=== PATIENT | female | born 1960 | race Caucasian/White ===

== ENCOUNTER 2022-06-13 10:15 | Outpatient (CLI) | payer OTHER, SELFPAY ==
[2022-06-13 14:16] LABS: Cholesterol* 175 mg/dL (90-199)
[2022-06-13 14:17] LABS: HDL Cholesterol* 66 mg/dL (>=50); LDL Cholesterol Calculated 84 mg/dL (<100); Triglycerides* 127 mg/dL (40-149)
[2022-06-19 16:28] LABS: Vitamin D 25 Hydroxy* 41 ng/mL (30-80)
== END 2022-06-13 10:16 | disposition home or self-care (01) ==
PROVIDERS: PCP Internal Medicine; Visit Provider Internal Medicine
DX: E78.5 Hyperlipidemia, unspecified (principal); E03.9 Hypothyroidism, unspecified; M85.88 Other specified disorders of bone density and structure, other site
CPT/HCPCS: 80061; 82306; 82652; 84443

== ENCOUNTER 2022-06-19 14:28 | Outpatient (CLI) | payer OTHER, SELFPAY | END 2022-06-19 14:29 | disposition home or self-care (01) | LOC: NFLDREF 14:29 | PROVIDERS: PCP Internal Medicine; Visit Provider Internal Medicine | DX: M85.88 Other specified disorders of bone density and structure, other site (principal) ==

== ENCOUNTER 2022-12-07 14:47 | Outpatient (CLI) | payer OTHER, SELFPAY ==
--- NOTE | 2022-12-07 15:00 | CRLHL7_ITS ---
For Patients: As a result of the 21st Century Cures Act, medical imaging exams and procedure reports are released immediately into your electronic medical record. You may view this report before your referring provider. If you have questions, please contact your health care provider. INDICATION: Cough. Chest pressure. Right upper lobe mass on chest radiograph. History of breast cancer. TECHNIQUE: CT chest with 75 mL Isovue 370 IV contrast. COMPARISON: Chest radiograph dated 12/04/2022 FINDINGS: Lungs and pleura: Semi solid opacity in the posterior right upper lobe measuring up to 2.3 cm (series 3, image 34). There are additional scattered punctate pulmonary nodules, for example a 0.3 cm nodule in the right lower lobe (series 3, image 64), 0.2 cm subpleural nodule in the lingula (series 3, image 55), and a 0.3 cm nodule in the left lower lobe (series 3, image 63). Heart and vasculature: No cardiomegaly, no pericardial effusion. No central pulmonary embolus. Thyroid and lower neck: Thyroid gland is not visualized. Mediastinum/shanel: No lymphadenopathy. Chest wall: No axillary lymphadenopathy. Few small right internal mammary chain lymph nodes, nonspecific. Postsurgical changes of bilateral mastectomies. Upper abdomen: No acute abnormality. Bones: Multilevel degenerative changes of the spine. No suspicious/aggressive focal osseous lesion. IMPRESSION: 1. Semi-solid opacity in the posterior right upper lobe measuring up to 2.3 cm, is nonspecific and could reflect infectious/inflammatory etiology. However differential includes metastases given history of breast cancer, recommend follow-up CT chest in 3 months. 2. Additional scattered punctate pulmonary nodules measuring up to 0.3 cm. 3. Few small right internal mammary chain lymph nodes, nonspecific. Attention on follow-up is recommended. Please note that all CT scans at this facility use dose modulation, iterative reconstruction, and/or weight-based dosing when appropriate to reduce radiation dose to as low as reasonably achievable. Dictated by Pearl Salguero MD @ 12/07/2022 5:35:31 PM (Electronically Signed)
[2022-12-07 15:16] LABS: Creatinine* 0.8 mg/dL (0.5-1.5); Estimated Glomerular Filt Rate 83 ml/min
== END 2022-12-07 14:48 | disposition home or self-care (01) ==
PROVIDERS: PCP Internal Medicine; Visit Provider Internal Medicine
DX: R05.9 Cough, unspecified (principal); R91.8 Other nonspecific abnormal finding of lung field
CPT/HCPCS: 36415; 71260; 82565; Q9967

== ENCOUNTER 2023-05-22 11:02 | Outpatient (REF) | payer OTHER, SELFPAY ==
--- OUTSIDE RECORDS SUMMARY | 2023-05-22 11:09 | XMS_ITS | Continuity of Care Document ---
Author Name Unknown Organization [facility] Address [address] [place] [address] Phone Care Team Providers Care Professor Of Anthropology Name Role Phone John CAMPUZANO, PhD, Stewart Unavailable Unavai lable Allergies, Adverse Reactions, Alerts Substance Reaction Status Criticality amoxicillin Vomiting/Passout Active No Informat ion Medications Medication Instructions Dosage Effective Dates (start - stop) Status Comments SYNTHROID (unknown strength) Not Available - Active NEXIUM (unknown strength) Not Available - Active WELCHOL (unknown strength) Not Available - Active METOPROLOL SUCCINATE (unknown strength) Not Available - Active MYRBETRIQ (unknown strength) Not Available - Active Procedures Procedure Date Office/Outpatient Visit,Earl Maldonado 2018 Advance Directives Directive Yes / No Effective Date File Name No Information Encounters Encounter Description Practice Location Reason(s) For Visit Diagnoses Date Provider Providers Copied on Encounter [facility], [address], [place], [id number], [place] tel:[phone] [facility] No Information 9 John William. [facility], [address], [place], [address], [place]. tel:[phone] Office/Outpat ient Visit,[facility], [address], [place], [id number], [place] tel:[phone] [facility] [place] Pain in thoracic spine 9 Judson Henriquez. [facility], [address], [place], [place], [id number] , . tel:[phone] Referring Provider: Stewart Lopez, [facility] [address], [place], [address]. tel:[phone] Family History Family Member Type Diagnosis Age At Onset No Information Payers Payer name Insurance type Covered libertarian ID Authorkarloa tibrook(s) [employer] CI [id number] Social History Type Description Quantity Date Captured Comments Sex Female Smoking Status No Information Chief Complaint And Reason For Visit No Information Reason For Referral Reason For Referral No Information History Of Present Illness Encounter Date Complaint History Of Prese nt Illness No Information Functional Status Date Functional Assessmen t No Information Instructions Date Instruction Additional Infor mation No Information Assessments Type Assessment Date No Information Patient Care Teams Name Effective Dates (start - stop) Status Members No Information
[2023-05-22 11:24] LABS: Chloride* 100 mmol/L (96-114)
[2023-05-22 11:25] LABS: Potassium* 4.3 mmol/L (3.6-5.1); Sodium* 141 mmol/L (135-149)
[2023-05-22 11:27] LABS: Alkaline Phosphatase* 61 U/L (40-150); Anion Gap 8 mEq/L (7-15); Carbon Dioxide* 33 mmol/L (20-32); Creatinine* 0.8 mg/dL (0.5-1.5); Estimated Glomerular Filt Rate 83 ml/min
[2023-05-22 11:28] LABS: Blood Urea Nitrogen* 15 mg/dL (7-30); Calcium* 9.2 mg/dL (8.4-10.6); Glucose* 93 mg/dL (60-115)
== END 2023-05-22 11:03 | disposition home or self-care (01) ==
LOC: NPINS 11:02
PROVIDERS: PCP Internal Medicine; Visit Provider Family Medicine Sports Medicine
DX: M81.0 Age-related osteoporosis without current pathological fracture (principal)
CPT/HCPCS: 80048; 80061; 82306; 82310; 83970; 84075; 84443

== ENCOUNTER 2023-06-13 10:16 | Outpatient (CLI) | payer OTHER, SELFPAY ==
--- OUTSIDE RECORDS SUMMARY | 2023-06-13 10:18 | XMS_ITS | Continuity of Care Document ---
Author Name Unknown Organization [facility] Address [address] [place] [address] Phone Care Team Providers Care Magazine Designer Name Role Phone John CAMPUZANO, PhD, Stewart [...] C, [address], [place], [id number], [place] tel:[phone] [facility] No Information 9 John William. [facility], [address], [place], [address], [place]. tel:[phone] Office/Outpat ient Visit,[facility], [address], [place], [id number], [place] tel:[phone] [facility] [place] Pain in thoracic spine 9 Judson Henriquez. [facility], [address], [place], [place], [id number] , . tel:[phone] Referring Provider: Stewart Lopez, [facility] [address], [place], [address]. tel:[phone] Family History Family Member Type Diagnosis Age At Onset No Information Payers Payer name Insurance type Covered constitution party ID Authorkarloa tibrook(s) [employer] CI [id number] Social History Type Description Quantity Date Captured [...]
--- OUTSIDE RECORDS SUMMARY | 2023-06-13 10:19 | XMS_ITS | Continuity of Care Document ---
Author Name Unknown Organization [facility] Address [address] [place] [address] Care Team Providers Care Business Education Instructor Name Role Phone [facility] Unavailable Unav ailable Procedures Procedure Date RF Cerv/Thor Single Level BILATERAL RF Cerv/Thor 2nd Level RIGHT RF Cerv/Thor 2nd Level LEFT RF Cerv/Thor Single Level BILATERAL RF Cerv/Thor Single Level BILATERAL RF Cerv/Thor 2nd Level RIGHT RF Cerv/Thor 2nd Level LEFT RF Cerv/Thor Single Level BILATERAL RF Cerv/Thor Single Level BILATERAL RF Cerv/Thor 2nd Level LEFT RF Cerv/Thor 2nd Level RIGHT RF Cerv/Thor Single Level BILATERAL Facet Jt Inj Cervical/Thoracic LEFT RF Cerv/Thor Single Level BILATERAL RF Cerv/Thor 2nd Level RIGHT RF Cerv/Thor 2nd Level LEFT RF Cerv/Thor Single Level BILATERAL Facet Jt Inj Cervical/Thoracic LEFT Facet Jt Inj Cervical/Thoracic RIGHT Feb Facet Jt Inj Cerv/Thor 2nd Level LEFT Se p Facet Jt Inj Cerv/Thor 2nd Level RIGHT S Facet Jt Inj Cerv/Thor 3rd Level LEFT Se p Facet Jt Inj Cerv/Thor 3rd Level RIGHT S RF Cerv/Thor Single Level LEFT 21 RF Cerv/Thor 2nd Level LEFT Facet Jt Inj Cervical/Thoracic LEFT Facet Jt Inj Cerv/Thor 2nd Level LEFT Ja Facet Jt Inj Cervical/Thoracic LEFT Facet Jt Inj Cerv/Thor 2nd Level LEFT De RF Cerv/Thor Single Level RIGHT RF Cerv/Thor 2nd Level RIGHT Facet Jt Inj Cervical/Thoracic RIGHT Apr Facet Jt Inj Cerv/Thor 2nd Level RIGHT N Facet Jt Inj Cervical/Thoracic RIGHT Mar Facet Jt Inj Cerv/Thor 2nd Level RIGHT O INTERLAMINAR CRV OR THRC Advance Directives Directive Yes / No Effective Date File Name No Information Encounters Encounter Description Practice Location Reason(s) For Visit Diagnoses Date Provider Providers Copied on Encounter [facility], [address] [place] [address], [id number], [facility] No Information [facility]. [address] [place] [address] [place], [id number], [place]. tel:[phone] Referring Provider: Sabrina Moran, [address] [place] [address], [id number]. tel:[phone] [facility], [address] [place] [address], [id number], [facility] No Information [facility]. [address] [place] [address] [place], [id number], [place]. tel:[phone] Referring Provider: Charles Lucas, [address] [place] [address], [address]. tel:[phone] [facility], [address] [place] [address], [id number], [facility] No Information [facility]. [address] [place] [address] [place], [place], [id number], [place]. tel:[phone] Referring Provider: Sabrina Moran, [address] [place] [address], [address]. tel:[phone] [place] [address], [address] [place] [address] [place], [id number], [facility] [place] No Information [facility] [place]. [address] [place] [address] Jb, Ethel [place], [id number], [place]. tel:[phone] Referring Provider: Sabrina Moran, [address] [place] [address], [address]. tel:[phone] [place] [address] [facility] [place], [address] [place] [address], [id number], [facility] [place] No Information [facility] [place]. [address] [place] [address] E[place], [id number], [place]. tel:[phone] Referring Provider: Sabrina Moran, [address] [place] [address], [address]. tel:[phone] [place] [address], [address] [place] [address], [id number], [facility] [place] No Information [facility]. [address] [place] [address] Jb, E[place], [id number], [place]. tel:[phone] Referring Provider: Sabrina Moran, [address] [place] [address], [address]. tel:[phone] [place] [address], [address] [place] [address], [id number], [facility] [place] No Information [facility]. [address] [place] [address] Jb, Ethel [place], [place], [id number], [place]. tel:[phone] Referring Provider: Sabrina Moran, [address] [place] [address], [id number]. tel:[phone] [place] [address] [facility] [place], [address] [place] [address] [place], [id number], [facility] [place] No Information [facility] [place]. [address] [place] [address] Jb, [place], [id number], [place]. tel:[phone] Referring Provider: Sabrina Moran, [address] [place] [address], [id number]. tel:[phone] [place] [address], [address] [place] [address], [id number], [facility] [place] No Information [facility] [place]. [address] [place] [address] Jb, [place], [id number], [place]. tel:[phone] Referring Provider: Sabrina Moran, [address] [place] [address], [address]. [phone] [place] [address] [facility] [place], [address] [place] [address], [id number], [facility] [place] No Information [facility]. [address] [place] [address] Jb, [facility] [place], [id number], [place]. tel:[phone] Referring Provider: Sabrina Moran, [address] [place] [address], [address]. tel:[phone] [place] [address], [address] [place] [address], [id number], [facility] [place] No Information [facility]. [address] [place] [address] Jb, [facility] [place], [id number], [place]. tel:[phone] Referring Provider: Sabrina Moran, [address] [place] [address], [address]. tel:[phone] [place] [address], [address] [place] [address], [id number], [facility] [place] No Information [facility]. [address] [place] [address] Jb, [facility] [place], [id number], [place]. tel:[phone] Referring Provider: Sabrina Moran, [address] [place] [address], [address]. tel:[phone] [place] [address] [facility] [place], [address] [place] [address] [place], [id number], [facility] [place] No Information [facility] [place]. [address] [place] [address] Jb, [facility], [id number], [place]. tel:[phone] Referring Provider: Sabrina Moran, [address] [place], [address]. tel:[phone] Family History Family Member Type Diagnosis Age At Onset No Information Payers Payer name Insurance type Covered alliance party ID Authoriza tibrook(s) [employer] CI [id number] Social History Type Description Quantity Date Captured [...]
--- OUTSIDE RECORDS SUMMARY | 2023-06-13 10:19 | XMS_ITS | Continuity of Care Document ---
Author Name Unknown Organization [facility] Address [address] [place] [address] Care Team Providers Care Candy Forming Machine Operator Name Role Phone Rinku Gold CRNA Unavailable Unavailable Procedures Procedure Date Percutaneous Image guided destruction pr ocedures B Percutaneous Image guided destruction pr ocedures B Percutaneous Image guided destruction pr ocedures B ANESTH PERC IMG TX SP PROC ANESTH PERC IMG TX SP PROC ANESTH PERC IMG TX SP PROC Advance Directives Directive Yes / No Effective Date File Name No Information Encounters Encounter Description Practice Location Reason(s) For Visit Diagnoses Date Provider Providers Copied on Encounter [facility], [address] [place], [place], [id number], [facility] [place] No Information Asif Dobbs. [address] [place], [place], [id number], . tel:[phone] Referring Provider: Sabrina Moran, [address] [place], [address] . tel:[phone] [facility], [address] [place], [place], [id number], [facility] [place] No Information Asif Dobbs. [address] [place], [place], [id number], . tel:[phone] Referring Provider: Charles Lucas, [address] [place], [address] . tel:[phone] [facility], [address], [place], [place], [id number], [facility] [place] No Information Amol Martins. [address], [facility], [place], [place], [id number], . tel:[phone] Referring Provider: Sabrina Moran, [address] [place], [address] . tel:[phone] [facility], [address] [place], [place], [id number], [facility] [place] No Information Aleja Zelaya. [address], [place], [place], [id number], . tel:[phone] Referring Provider: Sabrina Moran, [facility] [place], [address] . tel:[phone] [facility], [address] [place], [place], [id number], [facility] [place] No Information Lillian Encarnacion. [address], [facility], [place], [place], [id number], . tel:[phone] Referring Provider: Salvador Vergara, [address] [facility] [address], [place], [address]. tel:[phone] [facility], [address] [place], [place], [id number], [facility] No Information Adeline Topete. [address], [place], [place], [id number], . tel:[phone] Referring Provider: Sabrina Moran, [facility] [place], [address] . tel:[phone] Family History Family Member Type Diagnosis Age At Onset No Information Payers Payer name Insurance type Covered alliance party ID Authoriza tibrook(s) [employer] CI [id number] Social History Type Description Quantity Date Captured [...]
--- OUTSIDE RECORDS SUMMARY | 2023-06-13 10:19 | XMS_ITS | Continuity of Care Document ---
Author Name Unknown Organization [facility] Address [address] [place] [address] Phone Care Team Providers Care Fish Liver Sorter Name Role Phone Sabrina Moran DO Unavailable Unavailable Allergies, Adverse Reactions, Alerts Substance Reaction Status Criticality adhesive Blister Active No Information amoxicillin Nausea and vomitingpassing out Active No Information Medications Medication Instructions Dosage Effective Dates (start - stop) Status Comments Prolia 60 mg/mL subcutaneous syringe inject 1 milliliter by subcutaneous route every 6 months in the upper arm, upper thigh or abdomen 60 MG - Active Vagifem 10 mcg vaginal tablet insert 1 tablet by vaginal route every day for 14 days then 1 tablet (10 mcg) 2 times per week for duration of use as needed 10 MCG - Active Nexium 40 mg capsule,delayed release take 1 capsule by oral route every day 40 MG - Active Synthroid 125 mcg tablet take 1 tablet by oral route every day 125 MCG - Active rosuvastatin 10 mg tablet take 2 tablet by oral route every day 20 MG - Active Myrbetriq 25 mg tablet,extended release take 1 tablet by oral route every day swallowing whole with water. Do not crush, chew and/or divide. 25 MG - Active metoprolol tartrate 25 mg tablet take 1 tablet by oral route 2 times every day 25 MG - Active Procedures Procedure Date OFFICE/OUTPATIENT VISIT, EST RF Cerv/Thor Single Level BILATERAL RF Cerv/Thor 2nd Level RIGHT RF Cerv/Thor 2nd Level LEFT OFFICE/OUTPATIENT VISIT, EST RF Cerv/Thor Single Level BILATERAL RF Cerv/Thor 2nd Level RIGHT RF Cerv/Thor 2nd Level LEFT PT EVAL MOD COMPLEX 30 MIN SELF CARE MNGMENT TRAINING INJ TRIGGER POINT, 1/2 MUSCL Kenalog Triamcinolone acetonide inj OFFICE/OUTPATIENT VISIT, EST RF Cerv/Thor Single Level BILATERAL RF Cerv/Thor 2nd Level LEFT RF Cerv/Thor 2nd Level RIGHT OFFICE/OUTPATIENT VISIT, EST OFFICE/OUTPATIENT VISIT, EST Facet Jt Inj Or MBB Cervical/Thoracic LE FT OFFICE/OUTPATIENT VISIT, EST RF Cerv/Thor Single Level BILATERAL RF Cerv/Thor 2nd Level RIGHT RF Cerv/Thor 2nd Level LEFT Facet Jt Inj Or MBB Cervical/Thoracic BI LATERAL Facet Jt Inj Or MBB Cerv/Thor 2nd Level BILATERAL Facet Jt Inj Or MBB Cerv/Thor 3rd Level BILATERAL OFFICE/OUTPATIENT VISIT, EST RF Cerv/Thor Single Level LEFT 21 RF Cerv/Thor 2nd Level LEFT Facet Jt Inj Or MBB Cervical/Thoracic LE FT Facet Jt Inj Or MBB Cerv/Thor 2nd Level LEFT Facet Jt Inj Or MBB Cervical/Thoracic LE FT Facet Jt Inj Or MBB Cerv/Thor 2nd Level LEFT RF Cerv/Thor Single Level RIGHT 020 RF Cerv/Thor 2nd Level RIGHT Foll-up eval q3mo opiod tx OFFICE VISIT, EST TELEMEDICINE 20 Facet Jt Inj Or MBB Cervical/Thoracic RI GHT Facet Jt Inj Or MBB Cerv/Thor 2nd Level RIGHT Facet Jt Inj Or MBB Cervical/Thoracic RI GHT Facet Jt Inj Or MBB Cerv/Thor 2nd Level RIGHT PT EVAL MOD COMPLEX 30 MIN SELF CARE MNGMENT TRAINING INTERLAMINAR CRV OR THRC OFFICE/OUTPATIENT VISIT, EST OFFICE/OUTPATIENT VISIT, NEW Advance Directives Directive Yes / No Effective Date File Name No Information Encounters Encounter Description Practice Location Reason(s) For Visit Diagnoses Date Provider Providers Copied on Encounter [facility], [address] [place] [address] [place], [id number] , tel: [phone] [facility] No Information 3 Moran Sabrina. [address] [place] [address] Balaji Muhammadlibby colon [place], [id number] , [place]. tel: [phone] OFFICE/OUTPAT IENT VISIT, [facility], [address] [place] [address] [place], [id number] , tel: [phone] [facility] Back Pain (chief complaint) Chronic pain syndromeSpondylosis w/o myelopathy or radiculopathy, thoracic regionMyalgia, other siteOther chest painOther assisted (current) drug therapyOther spondylosis, cervical region 3 Moran Sabrina. [address] [place] [address] [place], [id number] , [place]. tel: [phone] Referring Provider: Charles Lawton, [address] [place] [address] [place], [address] . tel:[phone] [facility], [address] [place] [address] [place], [id number] , [place] tel: [phone] [facility] Spondylosis without myelopathy or radiculopathy, thoracic region 3 Moran Sabrina. [address] [place] [address] Rosa Maria Muhammad [place], [id number] , [place]. tel: [phone] Referring Provider: Charles Lawton, [address] [place] [address] [place], [address] . tel:[phone] OFFICE/OUTPAT IENT VISIT, [facility], [address] [place] [address] Humera Muhammad [place], [id number] , [place] tel:[phone] [facility] [place] Back Pain (chief complaint) Chronic pain syndromeSpondylosis w/o myelopathy or radiculopathy, thoracic regionMyalgia, other siteOther chest painOther intermediate card tender (current) drug therapy 3 Luisa Bennett. [address] [place] [address] Rosa Maria Muhammad [place], [id number] , [place]. tel: [phone] Referring Provider: Charles Lawton, [address] [place] [address] [place], [address] . tel:[phone] [facility], [address] [place] [address] Humera Muhammad [place], [id number] , [place] tel:[phone] [facility] [place] Spondylosis without myelopathy or radiculopathy, thoracic region 2 Lance Soto. [address] [place] [address] Humera Muhammad [place], [id number] , [place]. tel:[phone] Referring Provider: Charles Lawton, [address] [place] [address] [place], [address] . tel:[phone] [facility], [address] [place], [place] [address]Humera [place], [id number] , [place] tel:[phone] [facility] [place] lumbago (chief complaint) Other chest painSpondylosis w/o myelopathy or radiculopathy, thoracic region 2 Jennifer Acuna. [address] [place] [address] Rosa Maria Muhammad [place], [id number] , [place]. tel:[phone] Referring Provider: Charles Lawton, [address] [place] [address] [place], [address] . tel:[phone] OFFICE/OUTPAT IENT VISIT, [facility], [address] [place], [place] [address]Humera [place]endon [place], [id number] , [place] tel:[phone] [facility] [place] Back Pain (chief complaint) Chronic pain syndromeSpondylosis w/o myelopathy or radiculopathy, thoracic regionOther chest painOther assisted (current) drug therapyMyalgia, other site 2 Moran Sabrina. [facility] [place], [id number] , [place]. tel:[phone] Referring Provider: Charles Lawton, [address] [place], [place] [address]Ethel [place], [address] . tel:[phone] [facility], [address] [place] [address] Humera Muhammad [place], [id number] , [place] tel:[phone] [facility] Spondylosis without myelopathy or radiculopathy, thoracic region 2 Moran Sabrina. [facility] [place], [id number] , [place]. tel:[phone] Referring Provider: Charles Lawton, [address] [place], [place] [address]ms [place], [address] . tel:[phone] [facility], [address] [place], [place] [address]Humera [place], [id number] , [place] tel:[phone] [facility] thoracic spine (chief complaint)d orsalgia (chief complaint) Spondylosis w/o myelopathy or radiculopathy, thoracic region 2 Jennifer Acuna. [facility] [place], [id number] , [place]. tel:[phone] Referring Provider: Charles Lawton, [address] [place] [address] [place], [address] . tel:[phone] OFFICE/OUTPAT IENT VISIT, EST [facility], [facility] [place], [id number] , [place] tel:[phone] [facility] Back Pain (chief complaint) Chronic pain syndromeSpondylosis w/o myelopathy or radiculopathy, thoracic regionOther chest painOther intermediate card tender (current) drug therapy Apr- 2 Moran Sabrina. [facility] [place], [id number] , [place]. tel:[phone] Referring Provider: Charles Lawton, [address] [place], [address] . tel:[phone] [facility], [address] [place], [place] [address]Humera [place]end[place], [id number] , [place] tel: [phone] [facility] Spondylosis w/o myelopathy or radiculopathy, thoracic region Sep-2 2 Moranmigdalia Bennett. [facility] [place], [id number] , [place]. tel: [phone] OFFICE/OUTPAT IENT VISIT, [facility], [facility] Humera Ying [place], [id number] , [place] tel: [phone] [facility] [place] Back Pain (chief complaint) Chronic pain syndromeSpondylosis w/o myelopathy or radiculopathy, thoracic regionOther chest pain Aug-3 2 Will Charles. [address] [place], [place] [address]Rosa Maria [place], [id number] , [place]. tel: [phone] Referring Provider: Charles Lawton, [address] [place] [address] [place], [address] . tel:[phone] [facility], [facility] Humera Ying [place], [id number] , [place] tel: [phone] [facility] Spondylosis w/o myelopathy or radiculopathy, thoracic region 1 Luisa Bennett. [facility] [place], [id number] , [place]. tel: [phone] Referring Provider: Charles Lawton, [address] [place], [place] [address]Ethel [place], [address] . tel:[phone] OFFICE/OUTPAT IENT VISIT, [facility], Hum[place] Arriaga [place], [id number] , [place] tel: [phone] [facility] [place] Back Pain (chief complaint) Chronic pain syndromeOther chest painSpondylosis w/o myelopathy or radiculopathy, thoracic regionOther assisted (current) drug therapy Nov-1 0-202 1 Moran Sabrina. [address] Rosa [place], [id number] , [place]. tel: [phone] Referring Provider: Charles Lawton, [facility] [place], [address] . tel:[phone] [facility], [address] [place], [place] [address]Humera [place]end[place], [id number] , [place] tel: [phone] [facility] Spondylosis w/o myelopathy or radiculopathy, thoracic region Sep-3 0-202 1 Moran Sabrina. [facility] Rosa Maria Ying [place], [address] , [place]. tel: [phone] Referring Provider: Charles Lawton, [address] [place], [place] [address]Ethel [place], [address] . tel:[phone] [facility], [address] [place] [address] Humera Muhammad [place], [id number] , [place] tel: [phone] [facility] Spondylosis w/o myelopathy or radiculopathy, thoracic region Sep-0 8- 1 Moran Sabrina. [address] [place], [place] [address]Rosa Maria [place]end[place], [id number] , [place]. tel: [phone] [facility], [address] [place], [place] [address]Humera [place]end[place], [id number] , [place] tel: [phone] [facility] Spondylosis w/o myelopathy or radiculopathy, thoracic region Sep-0 2-202 1 Moran Sabrina. [address] [place], [place] [address]Rosa Maria [place], [id number] , [place]. tel: [phone] Referring Provider: Charles Lawton, [address] [place] [address] Ethel [place], [address] . tel:[phone] OFFICE/OUTPAT IENT VISIT, EST [facility], [facility] Humera Ying [place], [id number] , [place] tel: [phone] [facility] Back Pain (chief complaint) Chronic pain syndromeOther chest painSpondylosis w/o myelopathy or radiculopathy, thoracic region Aug- 1 Moran Sabrina. [address] Rosa [place] Ying [place], [id number] , [place]. tel: [phone] Referring Provider: Charles Lawton, Ethel [place], [address] . tel:[phone] [facility], [address] [place], [address] , [place] tel: [phone] [facility] [place] Spondylosis without myelopathy or radiculopathy, thoracic region 1 Moran Sabrina. [address] Rosa Maria Ying [place], [id number] , [place]. tel: [phone] Referring Provider: Charles Lawton, Ethel Arriaga [place], [address] . tel:[phone] [facility], [facility] Humera Ying [place], [id number] , [place] tel: [phone] [facility] [place] Spondylosis without myelopathy or radiculopathy, thoracic region 1 Moran Sabrina. [address] Rosa [place] Ying [place], [id number] , [place]. tel: [phone] [facility], [address] [place], [address] , [place] tel: [phone] [facility] Spondylosis without myelopathy or radiculopathy, thoracic region 1 Moran Sabrina. [address] Rosa Maria Ying [place], [address] , [place]. tel: [phone] Referring Provider: Charles Lawton, Ethel Wise [place], [address] . tel:[phone] [facility], 72[place], [id number] , [place] tel: [phone] [facility] [place] Spondylosis without myelopathy or radiculopathy, thoracic region 0 Moran Sabrina. 72Rosa [place], [id number] , [place]. tel: [phone] [facility], [address] Hum[place], [id number] , [place] tel: [phone] [facility] Spondylosis without myelopathy or radiculopathy, thoracic region 0 Moran Sabrina. [address] Rosa Maria Ying [place], [address] , [place]. tel: [phone] Referring Provider: Charles Lawton, [address] [place], [place] [address]ms Muhammad Balajicat antonioRADHA, [address] . tel:[phone] [facility], [facility] Humera Ying [place], [id number] , [place] tel: [phone] [facility] [place] Spondylosis without myelopathy or radiculopathy, thoracic region 0 Will Charles. [address] [place], [place] [address]Rosa Maria Rendon [place], [id number] , [place]. tel: [phone] [facility], [facility] Hum[place] Ying [place], [address] , [place] tel: [phone] [facility] Spondylosis w/o myelopathy or radiculopathy, thoracic region 0 Moran Sabrina. [address] Rosa Maria Ying [place], [id number] , [place]. tel: [phone] Referring Provider: Charles Lawton, [facility], [address] . tel:[phone] OFFICE VISIT, EST TELEMEDICINE [facility], [address] Hum[place], [id number] , [place] tel: [phone] [facility] Back Pain (chief complaint) Chronic pain syndromeOther chest painSpondylosis w/o myelopathy or radiculopathy, thoracic region 0 Jennifer Didi. [address] Rosa Maria Ying [place], [address] , [place]. tel: [phone] Referring Provider: Charles Lawton, [address] [place], [place] [address]ms [place], [address] . tel:[phone] [facility], [address], [address] , [place] tel: [phone] [facility] [place] Spondylosis without myelopathy or radiculopathy, thoracic region Apr-0 0 Moran Sabrina. [address] Rosa [place] Ying [place], [address] , [place]. tel: [phone] [facility], [address] [place] [address] Humera Muhammad [place], [id number] , [place] tel: [phone] [facility] Spondylosis without myelopathy or radiculopathy, thoracic region Apr-0 0 Moran Sabrina. [address] Rosa Maria Ying [place], [id number] , [place]. tel: [phone] Referring Provider: Charles Lawton, [address] [place], [place] [address]ms [place], [address] . tel:[phone] [facility], [address] [place], [place] [address]Humera [place]end[place], [address] , [place] tel: [phone] [facility] [place] Spondylosis without myelopathy or radiculopathy, thoracic region Mar- 0 Moran Sabrina. [facility] Rosa Maria Ying [place], [address] , [place]. tel: [phone] [facility], [facility] [place], [id number] , [place] tel: [phone] [facility] Spondylosis without myelopathy or radiculopathy, thoracic region Mar-2 0- 0 Moran Sabrina. [address] [place], [place] [address]Rosa Maria Rendon [place], [id number] , [place]. tel: [phone] Referring Provider: Charles Lawton, [address] [place] [address] [place], [address] . tel:[phone] [facility], [facility] Humera Ying [place], [address] , [place] tel: [phone] [facility] [place] widespread pain (chief complaint) Spondylosis w/o myelopathy or radiculopathy, thoracic region Oct-06 27-202 0 Jennifer Acuna. [address] Ne[place], [id number] , [place]. tel: [phone] Referring Provider: Charles Lawton, [facility] [place], [address] . tel:[phone] [facility], [address] [place] [address] Humera Muhammad [place], [address] , [place] tel: [phone] [facility] Spondylosis w/o myelopathy or radiculopathy, thoracic region Oct- 3-202 0 Moran Sabrina. [address] [place] [address] Rosa Maria Muhammad [place], [id number] , [place]. tel: [phone] [facility], [address] [place], [place] [address]Humera [place]end[place], [address] , [place] tel: [phone] [facility] Spondylosis w/o myelopathy or radiculopathy, thoracic region Sep-2 0 Moran Sabrina. [address] [place], [place] [address]Rosa Maria Rendon [place], [address] , [place]. tel: [phone] Referring Provider: Charles Lawton, [address] [place] [address] Ethel Muhammad [place], [address] . tel:[phone] OFFICE/OUTPAT IENT VISIT, [facility], [facility] Humera Ying [place], [address] , [place] tel: [phone] [facility] Back Pain (chief complaint) Chronic pain syndromeOther chest painSpondylosis w/o myelopathy or radiculopathy, thoracic region Sep-0 202 0 Moran Sabrina. [facility] [place], [address] , [place]. tel: [phone] Referring Provider: Charles Lawton, [address] [place], [place] [address]Ethel [place]endon [place], [address] . tel:[phone] OFFICE/OUTPAT IENT VISIT, [facility], [address] [place], [place] [address]Humera [place]endon [place], [id number] , [place] tel: [phone] [facility] [place] Back Pain (chief complaint) Chronic pain syndromeOther chest pain 0 Luisa Bennett. [address] Rosa Maria Ying [place], [address] , [place]. tel: [phone] Referring Provider: Charles Lawton, [address] [place], [address] . tel:[phone] Family History Family Member Type Diagnosis Age At Onset No Information Payers Payer name Insurance type Covered democrat ID Authoriza tibrook(s) [employer] CI [id number] Social History Type Description Quantity Date Captured Comments Sex Female Smoking Status No Information Chief Complaint And Reason For Visit No Information Reason For Referral Reason For Referral No Information Plan Of Treatment Date Type Action Status Goal Hepatitis C screening. Due o n due Goal Height. Due on d ue Goal CT-Colonography. Due on due Goal Zoster vaccine (). Due on due Goal PHQ-9. Due on du e Goal Lipid panel. Due on 023 due Goal FIT-DNA. Due on due Goal Medication Reconciliation. D ue on due Goal Tobacco Use. Due on 023 due Goal Review Allergy List. Due on due Goal FIT. Due on due Goal Update Social History. Due o n due Goal Unhealthy drug use screening . Due on due Goal Weight. Due on d ue Goal HPV. Due on due Goal Unhealthy drug use screening . Due on due Goal HPV. Due on due Goal Medication Reconciliation. D ue on due Goal Review Allergy List. Due on due Goal FIT. Due on due Goal CT-Colonography. Due on due Goal Update Social History. Due o n due Goal Lipid panel. Due on 023 due Goal FIT-DNA. Due on due Goal Weight. Due on d ue Goal Tobacco Use. Due on 023 due Goal PHQ-9. Due on du e Goal Hepatitis C screening. Due o n due Goal Height. Due on d ue Goal Zoster vaccine (1st). Due on due Goal Unhealthy drug use screening . Due on due Goal Medication Reconciliation. D ue on due Goal PHQ-9. Due on du e Goal Weight. Due on d ue Goal HPV. Due on due Goal FIT. Due on due Goal Height. Due on d ue Goal FIT-DNA. Due on due Goal CT-Colonography. Due on due Goal Tobacco Use. Due on 022 due Goal Hepatitis C screening. Due o n due Goal Lipid panel. Due on due Goal Update Social History. Due o n due Goal Review Allergy List. Due on due Goal Zoster vaccine (1st). Due on due Goal Height. Due on d ue Goal PHQ-9. Due on du e Goal HPV. Due on due Goal Unhealthy drug use screening . Due on due Goal Medication Reconciliation. D ue on due Goal FIT-DNA. Due on due Goal Weight. Due on d ue Goal FIT. Due on due Goal Zoster vaccine (1st). Due on due Goal CT-Colonography. Due on due Goal Update Social History. Due o n due Goal Tobacco Use. Due on due Goal Hepatitis C screening. Due o n due Goal Lipid panel. Due on due Goal Review Allergy List. Due on due Goal CT-Colonography. Due on due Goal Weight. Due on d ue Goal FIT-DNA. Due on due Goal Update Social History. Due o n due Goal Review Allergy List. Due on due Goal HPV. Due on due Goal Tobacco Use. Due on due Goal Lipid panel. Due on due Goal FIT. Due on due Goal Hepatitis C screening. Due o n due Goal Medication Reconciliation. D ue on due Goal Unhealthy drug use screening . Due on due Goal PHQ-9. Due on du e Goal Height. Due on d ue Goal Zoster vaccine (). Due on due Goal Review Allergy List. Due on due Goal Unhealthy drug use screening . Due on due Goal Hepatitis C screening. Due o n due Goal PHQ-9. Due on du e Goal Zoster vaccine (). Due on due Goal Medication Reconciliation. D ue on due Goal Update Social History. Due o n due Goal FIT. Due on due Goal Weight. Due on d ue Goal Tobacco Use. Due on due Goal Lipid panel. Due on due Goal FIT-DNA. Due on due Goal CT-Colonography. Due on due Goal Height. Due on d ue Goal HPV. Due on due Goal CT-Colonography. Due on due Goal Tobacco Use. Due on due Goal Review Allergy List. Due on due Goal Height. Due on d ue Goal FIT-DNA. Due on due Goal Unhealthy drug use screening . Due on due Goal Lipid panel. Due on due Goal PHQ-9. Due on du e Goal FIT. Due on due Goal Weight. Due on d ue Goal Zoster vaccine (). Due on due Goal Hepatitis C screening. Due o n due Goal Medication Reconciliation. D ue on due Goal HPV. Due on due Goal Update Social History. Due o n due Goal Update Social History. Due o n due Goal Medication Reconciliation. D ue on due Goal Height. Due on d ue Goal PHQ-9. Due on du e Goal Tobacco Use. Due on due Goal Weight. Due on d ue Goal Review Allergy List. Due on due Goal CT-Colonography. Due on due Goal FIT. Due on due Goal FIT-DNA. Due on due Goal Hepatitis C screening. Due o n due Goal HPV. Due on due Goal Lipid panel. Due on 022 due Goal Unhealthy drug use screening . Due on due Goal Zoster vaccine (1st). Due on due Goal Review Allergy List. Due on due Goal Height. Due on d ue Goal Medication Reconciliation. D ue on due Goal Update Social History. Due o n due Goal Weight. Due on d ue Goal PHQ-9. Due on du e Goal Tobacco Use. Due on due Goal Review Allergy List. Due on due Goal Height. Due on d ue Goal Medication Reconciliation. D ue on due Goal Update Social History. Due o n due Goal Weight. Due on d ue Goal PHQ-9. Due on du e Goal Tobacco Use. Due on due Goal Review Allergy List. Due on due Goal Height. Due on d ue Goal Medication Reconciliation. D ue on due Goal Update Social History. Due o n due Goal Weight. Due on d ue Goal PHQ-9. Due on du e Goal Tobacco Use. Due on due Goal Review Allergy List. Due on due Goal Height. Due on d ue Goal Medication Reconciliation. D ue on due Goal Update Social History. Due o n due Goal Weight. Due on d ue Goal PHQ-9. Due on du e Goal Tobacco Use. Due on due History Of Present Illness Encounter Date Complaint History Of Prese nt Illness Comments: Domonique i s here for follow up regarding chronic mid back and anterior chest pain. Reports her pain has been worse since her [employer] on 12/11/22. Worse in severity but unchanged in location or quality. Most bothersome in between her shoulder blades radiating laterally into her sides and breasts.Patient is s/p thoracic RFA on 01/24/2023. She is continuing to experience mid back pain as she is still in the post procedural phase. She has followed with ortho and completed updated imaging to her thoracic spine as well as cervical as it was thought the two could be connected.She continues to take NSAIDS with minimal benefit. Patient presents with her who contributes to today's discussion. No other concerns today. Back Pain Severity level i s 10. Duration: chronic. The problem is worsening. It occurs intermittently. The client describes the pain as an ache, sharp and tingling. Symptoms are aggravated by bending, lifting, twisting, walking and housework. Symptoms are relieved by lying down. Back Pain Severity level i s 8. Duration: chronic. It occurs intermittently. The client describes the pain as sharp and tingling. Symptoms are aggravated by bending, lifting, twisting, walking, movement and housework. Symptoms are relieved by lying down. Comments: Domonique i s here for follow up regarding chronic mid back and anterior chest pain. Reports her pain has been gradually worsening since her SOCRATES on 04/27/22.Patient is s/p thoracic RFA on 06/20/2023. She notes that she had very good relief from the procedure for ~6 months. She has recently felt the returning pain and she thinks it has been coming back worse than it was previously. She notes twisting and turning is aggravating for her pain. Noting that the pain takes her breath away. She would like to repeat the procedure at this time. She continues to take NSAIDS with benefit. Patient presents with her who contributes to today's discussion. No other concerns today. lumbago Patient is a 61 year old female presenting with complaints of chronic spine issues that has been on going for the last 9-10 years. Patient states that she was diagnosed with breast cancer a few years ago which has led to increased discomfort in her thoracic spine. She had a bilateral mastectomy. Much of her pain is localized to her chest and near her mastectomy scars. She also notes constant pain between/under shoulder blades. She has some radicular symptoms around her thorax. She has most discomfort when she is leaning forward, especially when she is standing. She uses a TENS unit for relief but notes that she has to turn it up very high to get a benefit. She notes that her discomfort is limiting many of her daily activities. Patient states that she has had numerous rounds of physical therapy without any benefit and has actually had significant increases in pain with the exercises. She has been working with a personal fitness trainer who is focusing on pain control and general flexibility. This has led to some improvement, but not significant changes in her pain. She had trigger point injections done recently along with starting muscle relaxors. She is hopeful that this will provide more long-term benefit. The only intervention that has provided relief at this point are previous RF procedures. She would like to decrease her discomfort to allow her to perform her daily, functional activities with less limitation and an improved quality of life. Comments: Domonique i s here for follow up regarding chronic mid back and anterior chest pain. Reports her pain has been gradually worsening since her SOCRATES on 10/18/21. Feels her pain is more midline now below shoulder blades and continues to radiate to axillary region. S/p bilateral T4-5 and T10-T11 RFA on 12/04/21. Notes she had hypersensitivity in the area for the following 2 months, but she did feel 50+% relief. Her relief is now starting to wear off and she doesn't want to be back where she was before the RFA. She is interested in repeating and says she spoke with Kristina and her insurance provider and was told she can repeat on or after 06/06/22. She continues to take NSAIDS with benefit. Notes she trialed Lyrica 25 mg for 2 months as prescribed SOCRATES, but didn't benefit and felt more agitated with mood swings.Patient presents with her who contributes to today's discussion. No other concerns today. Back Pain Severity level i s 10. Duration: chronic. The problem is worsening. It occurs intermittently. Location of pain is middle back and anterior chest. The client describes the pain as an ache, sharp and tingling. Symptoms are aggravated by bending, lifting, sitting, standing, twisting, walking, housework and prolonged positioning. Symptoms are relieved by lying down and rest. thoracic spine dorsalgia Patient describe s sever limiting pain in her thoracic spine region as well as radiating pain into her chest and occasional sharp shooting pain including shooting stabbing pain in mastectomy scar areas. Pain limits sitting standing lifting reaching activity and has to stretch frequently during the day to try and decrease the pain for short periods. Patient reports significant relief of all of these pain areas for 6 months after last RFA procedure. Pain has returned and patient is hopeful to have an RFA to give her adequate relief to perform her daily and occupational activities with less limitation. Patient has tried physical therapy and conservative treatment multiple times without benefit. Patient describes increased pain with a previous injections and some of the physical therapy exercises Patient does perform a daily home exercise routine to help manage the pain during the day and continues to exercise and work on core strengthening Back Pain Severity level i s 10. Duration: chronic. The problem is worsening. It occurs persistently. Location of pain is middle back and lower back. The client describes the pain as an ache, sharp and tingling. Symptoms are aggravated by bending, lifting, sitting, standing, twisting, walking, housework, movement and prolonged positioning. Symptoms are relieved by lying down and Radiofrequency Ablation. Comments: Domonique i s here for follow up. The patient presents with her who is participating in today's visit.The patient reports that her back pain has been worse since her last office visit on 09/21/21. Her pain in her thoracic spine still has a trigger point that won't release causing increased pain. She notes that her pain is impacting her ability to work and take care of her grandchildren throughout the day. She is having a difficult time getting her repeat RFA approved by insurance despite over 80% relief for 6 months. She does not understand why it was denied by insurance. She stated I don't get why they would allow someone to suffer like this. The patient does continue to exercise, minimum 3 times a week, with a personal fitness trainer through [facility] in addition to walking on her property. She has been doing the conservative management for over 3 months now, without any noticeable change in symptoms. She has gone to PT in the past but was discharged due to not making progress and needing the intervention. She is open to trying PT again if that's what it takes to be able to do the procedure that works for her.The patient is not open to taking Narcotics. She has taken Tylenol, ibuprofen, and Aleve for over 3 months with no relief of her back pain, but does get relief with her headaches. She has tried neuropathic medications but had severe side effects such as hallucinations and vomiting. She is worried about re-trying these because of the side effects. Back Pain Severity level i s 9. Duration: chronic. The problem is fluctuating. It occurs intermittently. Location of pain is middle back and lower back. Symptoms are aggravated by lifting, standing, twisting, walking, housework and prolonged positioning. Symptoms are relieved by lying down, massage, stretching, rest, TENS and changing positions. Comments: Domonique i s here for follow up. PSH of a double mastectomy. Presents with her Lake, who contributes to today's OV. She is s/p RFA of the bilateral T3, T4, T9, T10 nerves on 03/23/21 with complete relief for the past 6 months. She would like to repeat the procedure as her pain is starting to return again. However, she would like something to address her persisting back pain "at the center that she feels may be missed through the RFA. She notes that the RFA helps with the nerve pain around her mid-back/chest area but not as much in the middle of her back pain. No other concerns today. Back Pain (comments) Domonique is her e for follow up and medications refill. The patient is s/p RFA of the bilateral T3, T4, T9, T10 nerves on 03/23/21. She reports that she is now experiencing some more pain in her left shoulder blade. The patient notes that it feels like someone picked up her left shoulder blade and shoved a golf ball into it. However, she did get some relief in her chest wall. Reports current medication regimen provides 50+% pain relief and allows for increased functionality. Denies side effects from current medication regimen. Back Pain Severity level i s 8. Duration: chronic. The problem is worsening. It occurs intermittently. Location of pain is middle back and chest wall.The patient describes the pain as an ache and sharp. Symptoms are aggravated by bending, lifting, sitting, twisting, walking, housework and prolonged positioning. Symptoms are relieved by lying down, sitting, TENs unit and changing positions. Back Pain (comments) Domonique presen ts for a follow up regarding chest wall and mid back pain.Significant relief to back and s/p mastectomy pain from thoracic RFA on 07/25/20, however pain is now starting to return. She would like to repeat before pain worsens any further. Mid back pain is localized to her bra line and persistent. Exacerbations typically when slightly bending forward especially when doing activities like washing dishes. Accompanied by her who participates in today's discussion. No further concerns. Back Pain Severity level i s 9. Duration: chronic. The problem is fluctuating. It occurs intermittently. The patient describes the pain as an ache, sharp and tingling. Symptoms are aggravated by bending, lifting, twisting, housework and prolonged positioning. Symptoms are relieved by lying down, sitting and TENS. Back Pain Onset: gradual w ithout injury. Severity level is moderate. Duration: chronic. The problem is fluctuating. It occurs intermittently. Location of pain is middle back.The patient describes the pain as an ache and sharp. Symptoms are aggravated by bending, daily activities, lifting and standing. Symptoms are relieved by heat, ice and rest. Back Pain (comments) Domonique prespablo ts for a virtual follow up regarding chest wall and mid back pain.Primarily presents today for thoracic RFA education. All questions answered. Confirmatory on 04/28 with significant relief, but has since worn off. Mid back pain is localized to her bra line and persistent. Exacerbations typically when slightly bending forward especially when doing activities like washing dishes. Accompanied by her today. No further concerns. widespread pain Patient is a 59 year old female presenting with complaints of chronic spine issues that has been on going for the last 9-10 years. She notes that she has discomfort at her lumbar spine, but most of her pain today is localized to her thoracic spine .Patient states that she has had numerous rounds of physical therapy without any benefit and has actually had significant increases in pain with the exercises. Patient states that she was diagnosed with breast cancer which has led to increased discomfort in her thoracic spine. She had a bilateral mastectomy. She states that her pain is constant and is primarily between/under shoulder blades. She has some radicular symptoms around her thorax. Patient states that she recently she had an injection at her thoracic spine which ultimately increased her pain. She has most discomfort when she is leaning forward, especially when she is standing. She uses a TENS unit for relief but notes that she has to turn it up very high to get a benefit. She notes that her discomfort is limiting many of her daily activities. She would like to decrease her discomfort to allow her to perform her daily, functional activities with less limitation and an improved quality of life. Back Pain Severity level i s 8. Duration: chronic. The problem is stable. It occurs intermittently. Location of pain is middle back, chest and breasts.The patient describes the pain as an ache, sharp and tingling. Symptoms are aggravated by bending, lifting, sitting, twisting, housework and movement. Symptoms are relieved by lying down and TENS. Back Pain (comments) Domonique is her e for a followup after initial consult. Chest wall and mid back pain persists. She explains that the chest wall/breast pain is separate from the back pain. The back pain started years ago before her mastectomy that caused breast pain and is her most bothersome pain on most days. However, the pain merges across her back and chest region during pain flares of both pains.Her is present and contributed to today's OV.Reports current medication (gabapentin and methocarbamol) regimen provides no pain relief. Denies side effects from current medication regimen. She has been taking 2tab gabapentin 3times/day and 2tab methocarbamol/day.No other concerns today. Back Pain Severity level i s 9. Duration: chronic. The problem is worsening. It occurs persistently. Location of pain is middle back, left flank, right flank and Chest.There is no radiation of pain. The patient describes the pain as sharp and stabbing. Symptoms are aggravated by changing positions, extension, flexion and pulling. Symptoms are relieved by physical therapy and TENS unit. Back Pain (comments) Domonique ding ts for initial consult for her c/c of ongoing chronic back and chest pain. Self Referred to [facility], She has had the pain for the last several years. Had a Mastectomy Reconstruction in 2016 which she had residual pain from. Most pain noted at the T9-T10 region. Pain is flares shortly after any increased activity. Described pain as a stabbing pain. Denies pain in her neck or low back.Has had imaging on her back including MRI's and CT scans. Was put on 3 medications at the same time by a physician she was seeing previously including Duloxetine, Gabapentin, Topiramate respectively which she had clear negative SE of. She was then taken off of the medications to reduce SE. Notes that when she was taken off of the medication, she was taken off of Gabapentin first, which she was not taking a high dose of at the time. Notes that she began finding relief with the regimen however. Reports Hypersensitivity which she had Desensitizing therapy for without benefit. Has utilized Lidocaine patches which did not provide benefit. Other OTC medications have not provided benefit. Has participated in PT in the past and presently in [place] (2019-present) which is providing limited benefit. She would like to establish care with [facility] in order to explore other adjunctive treatment and pursue other therapies so that she may continue functioning normally without pain.Current Treatments/Medications: TENS unit(limited benefit)Her , Lake was present int he OV today and contributed tot he discussion of care. Functional Status Date Functional Assessmen t No Information Instructions Date Instruction Additional Infor mation No Information Assessments Type Assessment Date No Information Patient Care Teams Name Effective Dates (start - stop) Status Members No Information
--- NOTE | 2023-06-13 11:44 | W.ANESCHARGE ---
Anesthesia Charges Start Date/Time Anesthesia Start Date: 06/13/23 Anesthesia Start Time: 11:13 Stop Date/Time Anesthesia Stop Date: 06/13/23 Anesthesia Stop Time: 11:43
--- NOTE | 2023-06-13 11:47 | W.ANESCHARGE ---
Anesthesia Charges Start Date/Time Anesthesia Start Date: 06/13/23 Anesthesia Start Time: 11:13 Stop Date/Time Anesthesia Stop Date: 06/13/23 Anesthesia Stop Time: 11:43
== END 2023-06-13 10:17 | disposition home or self-care (01) ==
LOC: OP CLINIC 10:17
PROVIDERS: PCP Internal Medicine; Visit Provider Surgery
DX: Z12.11 Encounter for screening for malignant neoplasm of colon (principal); K63.5 Polyp of colon; Z86.010 Personal history of colon polyps
CPT/HCPCS: 00811; 45385; J1885; J2704

== ENCOUNTER 2023-06-19 14:28 | Outpatient (CLI) | payer OTHER, SELFPAY ==
--- OUTSIDE RECORDS SUMMARY | 2023-06-19 14:31 | XMS_ITS | Continuity of Care Document ---
Author Name Unknown Organization [facility] Address [address] [place] [address] Care Team Providers Care Knit Goods Press Hand Name Role Phone Rinku Gold CRNA Unavailable [...] Diagnoses Date Provider Providers Copied on Encounter [facility], [address] [place], [place], [id number], [facility] [place] No Information Asif Dobbs. [address] [place], [place], [id number], . tel:[phone] Referring Provider: Sabrina Moran, [address] [facility] [place], [address] . tel:[phone] [facility], [address] [place], [place], [id number], [facility] [place] No Information Asif Dobbs. [address] [place], [place], [id number], . tel:[phone] Referring Provider: Charles Lucas, [address] [place], [address] . tel:[phone] [facility], [address], [place], [place], [id number], [facility] [place] No Information Amol Martins. [address], [facility], [place], [place], [id number], . tel:[phone] Referring Provider: Sabrina Moran, [address] [place], [address] . tel:[phone] [facility], [address] [place], [place], [id number], [facility] [place] No Information Aleja Zelaya. [address], [place], [place], [id number], . tel:[phone] Referring Provider: Sabrina Moran, [facility] [place], [address] . tel:[phone] [facility], [address] [place], [place], [id number], [facility] [place] No Information Lillian Encarnacion. [address], [facility], [place], [place], [id number], . tel:[phone] Referring Provider: Salvador Vergara, [address] [facility] [address], [place], [address]. tel:[phone] [facility], [address] [place], [place], [id number], [facility] No Information Adeline Topete. [address], [place], [place], [id number], . tel:[phone] Referring Provider: Sabrina Moran, [facility] [place], [address] . tel:[phone] Family History Family Member Type Diagnosis Age At Onset No Information Payers Payer name Insurance type Covered alliance party ID Authoriza tibrook(s) [employer] CI [id number] Social History Type Description Quantity Date Captured [...]
--- OUTSIDE RECORDS SUMMARY | 2023-06-19 14:31 | XMS_ITS | Continuity of Care Document ---
Author Name Unknown Organization [facility] Address [address] [place] [address] Care Team Providers Care Consumer Educator Name Role Phone [facility] Unavailable Unav ailable Procedures Procedure Date [...] Diagnoses Date Provider Providers Copied on Encounter [facility], [address] [place] [address], [id number], [facility] No Information [facility]. [address] [place] [address] [place], [place], [id number], [place]. tel:[phone] Referring Provider: Sabrina Moran, [address] [place] [address], [id number]. tel:[phone] [facility], [address] [place] [address], [id number], [facility] No Information [facility]. [address] [place] [address] [place], [place], [id number], [place]. tel:[phone] Referring Provider: Charles Lucas, [address] [place] [address], [id number]. tel:[phone] [facility], [address] [place] [address], [id number], [facility] No Information [facility]. [address] [place] [address] [place], [place], [id number], [place]. tel:[phone] Referring Provider: Sabrina Moran, [address] [place] [address], [id number]. tel:[phone] [place] [address], [address] [place] [address] [place], [id number], [facility] No Information [facility]. [address] [place] [address] Jb, Ethel [place], [id number], [place]. tel:[phone] Referring Provider: Sabrina Moran, [address] [place] [address], [id number]. tel:[phone] [place] [address] [facility], [address] [place] [address], [id number], [facility] No Information [facility]. [address] [place] [address] [place], [id number], [place]. tel:[phone] Referring Provider: Sabrina Moran, [address] [place] [address], [id number]. tel:[phone] [place] [address], [address] [place] [address], [id number], [facility] No Information [facility]. [address] [place] [address] Jb, Ethel [place], [id number], [place]. tel:[phone] Referring Provider: Sabrina Moran, [address] [place] [address], [id number]. tel:[phone] [place] [address], [address] [place] [address], [id number], [facility] No Information [facility]. [address] [place] [address] Jb, Ethel [place], [place], [id number], [place]. tel:[phone] Referring Provider: Sabrina Moran, [address] [place] [address], [address]. tel:[phone] [place] [address] [facility], [address] [place] [address] [place], [id number], [facility] No Information [facility]. [address] [place] [address] Jb, Ethel [place], [place], [id number], [place]. tel:[phone] Referring Provider: Sabrina Moran, [address] [place] [address], [id number]. tel:[phone] [place] [address], [address] [place] [address], [id number], [facility] No Information [facility]. [address] [place] [address] Jb, [place], [id number], [place]. tel:[phone] Referring Provider: Sabrina Moran, [address] [place] [address], [id number]. [phone] [place] [address] [facility], [address] [place] [address], [id number], [facility] No Information [facility]. [address] [place] [address] Jb, [facility] [place], [id number], [place]. tel:[phone] Referring Provider: Sabrina Moran, [address] [place] [address], [id number]. tel:[phone] [place] [address], [address] [place] [address], [id number], [facility] No Information [facility]. [address] [place] [address] Jb, [facility] [place], [id number], [place]. tel:[phone] Referring Provider: Sabrina Moran, [address] [place] [address], [id number]. tel:[phone] [place] [address], [address] [place] [address], [id number], [facility] No Information [facility]. [address] [place] [address] Jb, [facility], [place], [id number], [place]. tel:[phone] Referring Provider: Sabrina Moran, [address] [place] [address], [id number]. tel:[phone] [place] [address] [facility], [address] [place] [address] [place], [id number], [facility] No Information [facility]. [address] [place] [address] Jb, [facility], [id number], [place]. tel:[phone] Referring Provider: Sabrina Moran, [address] [place], [address]. tel:[phone] Family History Family Member Type Diagnosis Age At Onset No Information Payers Payer name Insurance type Covered alliance party ID Authoriza tibrook(s) [employer] CI [id number] Social History Type Description Quantity Date Captured [...]
--- OUTSIDE RECORDS SUMMARY | 2023-06-19 14:31 | XMS_ITS | Continuity of Care Document ---
Author Name Unknown Organization [facility] Address [address] [place] [address] Phone Care Team Providers Care Cabinet Installer Name Role Phone John CAMPUZANO, PhD, Stewart [...] C, [address], [place], [id number], [place] tel:[phone] [facility] No Information 9 John William. [facility], [address], [place], [address], [place]. tel:[phone] Office/Outpat ient Visit,[facility], [address], [place], [id number], [place] tel:[phone] [facility] [place] Pain in thoracic spine 9 Judson Henriquez. [facility], [address], [place], [place], [id number] , . tel:[phone] Referring Provider: Stewart Lopez, [facility] [address], [place], [address]. tel:[phone] Family History Family Member Type Diagnosis Age At Onset No Information Payers Payer name Insurance type Covered constitution party ID Authorkarloa tibrook(s) [employer] [id number] Social History Type Description Quantity Date Captured [...]
--- OUTSIDE RECORDS SUMMARY | 2023-06-19 14:32 | XMS_ITS | Continuity of Care Document ---
Author Name Unknown Organization [facility] Address [address] [facility] [place] [address] Phone Care Team Providers Care Vp Cardiovascular Service Line Name Role Phone Sabrina Moran DO Unavailable [...] Diagnoses Date Provider Providers Copied on Encounter [facility], [address] [place] [address] [place], [place], [id number] , tel: [phone] [facility] No Information 3 Moran Sabrina. [address] [place] [address] Balaji Muhammadlibby colon [place], [id number] , [place]. tel: [phone] OFFICE/OUTPAT IENT VISIT, [facility], [address] [place] [address] [place], [place], [id number] , tel: [phone] [facility] Pain [facility] Back Pain (chief complaint) Chronic pain syndromeSpondylosis w/o myelopathy or radiculopathy, thoracic regionMyalgia, other siteOther chest painOther fdc (current) drug therapyOther spondylosis, cervical region 3 Moran Sabrina. [address] [place] [address] JbRosa Maria [place], [id number] , [place]. tel: [phone] Referring Provider: Charles Lawton, [address] [place] [address] [place], [address] . tel:[phone] [facility], [address] [place] [address] [place], [place], [id number] , [place] tel: [phone] [facility] Spondylosis without myelopathy or radiculopathy, thoracic region 3 Moran Sabrina. [address] [place] [address] Rosa Maria Muhammad [place], [id number] , [place]. tel: [phone] Referring Provider: Charles Lawton, [address] [place] [address] [place], [address] . tel:[phone] OFFICE/OUTPAT IENT VISIT, [facility], [address] [place] [address] Humera Muhammad [place], [id number] , [place] tel:[phone] [facility] [place] Back Pain (chief complaint) Chronic pain syndromeSpondylosis w/o myelopathy or radiculopathy, thoracic regionMyalgia, other siteOther chest painOther intermediate teacher (current) drug therapy 3 Luisa Bennett. [address] [place] [address] Rosa Maria Muhammad [place], [id number] , [place]. tel: [phone] Referring Provider: Charles Lawton, [address] [place] [address] [place], [address] . tel:[phone] [facility], [address] [place] [address] Humera Muhammad [place], [id number] , [place] tel:[phone] [facility] [place] Spondylosis without myelopathy or radiculopathy, thoracic region 2 Lance Soto. [address] [place] [address] Humera Muhammad [place], [id number] , [place]. tel:[phone] Referring Provider: Charles Lawton, [address] [place] [address] [place], [address] . tel:[phone] [facility], [address] [place], [place] [address]Humera Rendon [place], [id number] , [place] tel:[phone] [facility] [place] lumbago (chief complaint) Other chest painSpondylosis w/o myelopathy or radiculopathy, thoracic region 2 Jennifer Acuna. [address] [place] [address] Rosa Maria Muhammad [place], [id number] , [place]. tel:[phone] Referring Provider: Charles Lawton, [address] [place] [address] [place], [address] . tel:[phone] OFFICE/OUTPAT IENT VISIT, [facility], [address] [place], [place] [address]Humera Rendon [place], [id number] , [place] tel:[phone] [facility] [place] Back Pain (chief complaint) Chronic pain syndromeSpondylosis w/o myelopathy or radiculopathy, thoracic regionOther chest painOther fdc (current) drug therapyMyalgia, other site 2 Moran Sabrina. [facility] [place], [id number] , [place]. tel:[phone] Referring Provider: Charles Lawton, [address] [place], [place] [address]Ethel Rendon [place], [address] . tel:[phone] [facility], [address] [place] [address] Humera Muhammad [place], [id number] , [place] tel:[phone] [facility] Spondylosis without myelopathy or radiculopathy, thoracic region 2 Moran Sabrina. [facility] Hospital[facility] [place], [id number] , [place]. tel:[phone] Referring Provider: Charles Lawton, [address] [place], [place] [address]ms [place], [address] . tel:[phone] [facility], [address] [place], [place] [address]Humera Rendon [place], [id number] , [place] tel:[phone] [facility] Pain [facility] thoracic spine (chief complaint)d orsalgia (chief complaint) Spondylosis w/o myelopathy or radiculopathy, thoracic region 2 Jennifer Acuna. [facility] Hospital[facility] [place], [id number] , [place]. tel:[phone] Referring Provider: Charles Lawton, [address] [place] [address] [place], [address] . tel:[phone] OFFICE/OUTPAT IENT VISIT, EST [facility], [facility] [place] [place], [id number] , [place] tel:[phone] [facility] Back Pain (chief complaint) Chronic pain syndromeSpondylosis w/o myelopathy or radiculopathy, thoracic regionOther chest painOther intermediate teacher (current) drug therapy Apr- 2 Moran Sabrina. [facility] Hospital[facility] [place], [id number] , [place]. tel:[phone] Referring Provider: Charles Lawton, [address] [place], [address] . tel:[phone] [facility], [address] [place], [place] [address]Humera Rendon [place], [id number] , [place] tel: [phone] [facility] Spondylosis w/o myelopathy or radiculopathy, thoracic region Sep-2 2 Moranmigdalia Bennett. [facility] Hospital[facility] [place], [id number] , [place]. tel: [phone] OFFICE/OUTPAT IENT VISIT, [facility], [facility] Humera Ying [place], [id number] , [place] tel: [phone] [facility] [place] Back Pain (chief complaint) Chronic pain syndromeSpondylosis w/o myelopathy or radiculopathy, thoracic regionOther chest pain Aug-3 2 Will Charles. [address] [place], [place] [address]Rosa Maria Rendon [place], [id number] , [place]. tel: [phone] Referring Provider: Charles Lawton, [address] [place] [address] [place], [address] . tel:[phone] [facility], [facility] Humera Ying [place], [id number] , [place] tel: [phone] [facility] Spondylosis w/o myelopathy or radiculopathy, thoracic region 1 Luisa Bennett. [facility] HospitalRosa [facility] [place], [id number] , [place]. tel: [phone] Referring Provider: Charles Lawton, [address] [place], [place] [address]E[place], [address] . tel:[phone] OFFICE/OUTPAT IENT VISIT, [facility], Humera Arriaga [place], [id number] , [place] tel: [phone] [facility] [place] Back Pain (chief complaint) Chronic pain syndromeOther chest painSpondylosis w/o myelopathy or radiculopathy, thoracic regionOther fdc (current) drug therapy Nov-1 0-202 1 Moran Sabrina. [address] Rosa Maria Ying [place], [id number] , [place]. tel: [phone] Referring Provider: Charles Lawton, [facility] [place], [address] . tel:[phone] [facility], [address] [place], [place] [address]Humera [place]endon [place], [id number] , [place] tel: [phone] [facility] Spondylosis w/o myelopathy or radiculopathy, thoracic region Sep-3 0-202 1 Moran Sabrina. [facility] Rosa Maria Ying [place], [id number] , [place]. tel: [phone] Referring Provider: Charles Lawton, [address] [place], [place] [address]E[place], [address] . tel:[phone] [facility], [address] [place] [address] Humera Muhammad [place], [id number] , [place] tel: [phone] [facility] Spondylosis w/o myelopathy or radiculopathy, thoracic region Sep-0 8- 1 Moran Sabrina. [address] [place], [place] [address]Rosa Maria Rendon [place], [id number] , [place]. tel: [phone] [facility], [address] [place], [place] [address]Humera Rendon [place], [id number] , [place] tel: [phone] [facility] Spondylosis w/o myelopathy or radiculopathy, thoracic region Sep-0 2-202 1 Moran Sabrina. [address] [place], [place] [address]Rosa Maria Rendon [place], [id number] , [place]. tel: [phone] Referring Provider: Charles Lawton, [address] [place] [address] Ethel Muhammad [place], [address] . tel:[phone] OFFICE/OUTPAT IENT VISIT, EST [facility], [facility] Humera Ying [place], [id number] , [place] tel: [phone] [facility] Back Pain (chief complaint) Chronic pain syndromeOther chest painSpondylosis w/o myelopathy or radiculopathy, thoracic region Aug- 1 Moran Sabrina. [address] Rosa Maria Ying [place], [id number] , [place]. tel: [phone] Referring Provider: Charles Lawton, Ethel Arriaga [place], [address] . tel:[phone] [facility], [address] Humera Ying [place], [id number] , [place] tel: [phone] [facility] [place] Spondylosis without myelopathy or radiculopathy, thoracic region 1 Moran Sabrina. [address] Rosa Maria Ying [place], [id number] , [place]. tel: [phone] Referring Provider: Charles Lawton, Ethel Arriaga [place], [address] . tel:[phone] [facility], [facility] Humera Ying [place], [id number] , [place] tel: [phone] [facility] [place] Spondylosis without myelopathy or radiculopathy, thoracic region 1 Moran Sarbina. [address] Rosa Maria Ying [place], [id number] , [place]. tel: [phone] [facility], [address] Hum[place] Ying [place], [id number] , [place] tel: [phone] [facility] Spondylosis without myelopathy or radiculopathy, thoracic region 1 Moran Sabrina. 72 Rosa Maria Ying [place], [id number] , [place]. tel: [phone] Referring Provider: Charles Lawton, Ethle Wise [place], [address] . tel:[phone] [facility], 72Hum[place], [id number] , [place] tel: [phone] [facility] [place] Spondylosis without myelopathy or radiculopathy, thoracic region 0 Moran Sabrina. 72Rosa Maria Arri[place], [id number] , [place]. tel: [phone] [facility], [address] Humera Ying [place], [id number] , [place] tel: [phone] [facility] Spondylosis without myelopathy or radiculopathy, thoracic region 0 Moran Sabrina. [address] Rosa Maria Ying [place], [id number] , [place]. tel: [phone] Referring Provider: Charles Lawton, [address] [place], [place] [address]ms Muhammad Balajicat antonioRADHA, [address] . tel:[phone] [facility], [facility] Humera Ying [place], [id number] , [place] tel: [phone] [facility] [place] Spondylosis without myelopathy or radiculopathy, thoracic region 0 Will Charles. [address] [place], [place] [address]Rosa Maria Rendon [place], [id number] , [place]. tel: [phone] [facility], [facility] Humera Ying [place], [id number] , [place] tel: [phone] [facility] Spondylosis w/o myelopathy or radiculopathy, thoracic region 0 Moran Sabrina. [address] Rosa Maria Ying [place], [id number] , [place]. tel: [phone] Referring Provider: Charles Lawton, [facility] [place], [address] . tel:[phone] OFFICE VISIT, EST [employer]LEMEDICINE [facility], [address] Humera Ying [place], [id number] , [place] tel: [phone] [facility] Back Pain (chief complaint) Chronic pain syndromeOther chest painSpondylosis w/o myelopathy or radiculopathy, thoracic region 0 Jennifer Didi. [address] Rosa Maria Ying [place], [address] , [place]. tel: [phone] Referring Provider: Charles Lawton, [address] [place], [place] [address]ms [place], [address] . tel:[phone] [facility], [address] [place], [id number] , [place] tel: [phone] [facility] [place] Spondylosis without myelopathy or radiculopathy, thoracic region Apr-0 0 Moran Sabrina. [address] Rosa Maria Ying [place], [id number] , [place]. tel: [phone] [facility], [address] [place] [address] Humera Muhammad [place], [id number] , [place] tel: [phone] [facility] Spondylosis without myelopathy or radiculopathy, thoracic region Apr-0 0 Moran Sabrina. [address] Rosa Maria Ying [place], [id number] , [place]. tel: [phone] Referring Provider: Charles Lawton, [address] [place], [place] [address]ms [place], [address] . tel:[phone] [facility], [address] [place], [place] [address]Humera Rendon [place], [address] , [place] tel: [phone] [facility] [place] Spondylosis without myelopathy or radiculopathy, thoracic region Mar- 0 Moran Sabrina. [facility] Rosa Maria Ying [place], [id number] , [place]. tel: [phone] [facility], [facility] [place], [id number] , [place] tel: [phone] [facility] Spondylosis without myelopathy or radiculopathy, thoracic region Mar-2 0- 0 Moran Sabrina. [address] [place], [place] [address]Rosa Maria Rendon [place], [id number] , [place]. tel: [phone] Referring Provider: Charles Lawton, [address] [place] [address] [place], [address] . tel:[phone] [facility], [facility] Humera Ying [place], [id number] , [place] tel: [phone] [facility] [place] widespread pain (chief complaint) Spondylosis w/o myelopathy or radiculopathy, thoracic region Oct-06 27-202 0 Jennifer Acuna. [address] [place] [place], [id number] , [place]. tel: [phone] Referring Provider: Charles Lawton, [facility] [place], [address] . tel:[phone] [facility], [address] [place] [address] Humera Muhammad [place], [id number] , [place] tel: [phone] [facility] Spondylosis w/o myelopathy or radiculopathy, thoracic region Oct- 3-202 0 Moran Sabrina. [address] [place] [address] Rosa Maria Muhammad [place], [id number] , [place]. tel: [phone] [facility], [address] [place], [place] [address]Humera Rendon [place], [id number] , [place] tel: [phone] [facility] Spondylosis w/o myelopathy or radiculopathy, thoracic region Sep-2 0 Moran Sabrina. [address] [place], [place] [address]Rosa Maria Rendon [place], [id number] , [place]. tel: [phone] Referring Provider: Charles Lawton, [address] [place] [address] Ethel Muhammad [place], [address] . tel:[phone] OFFICE/OUTPAT IENT VISIT, [facility], [facility] Humera Ying [place], [id number] , [place] tel: [phone] [facility] Back Pain (chief complaint) Chronic pain syndromeOther chest painSpondylosis w/o myelopathy or radiculopathy, thoracic region Sep-0 202 0 Moran Sabrina. [facility] Hospital[facility] [place], [id number] , [place]. tel: [phone] Referring Provider: Charles Lawton, [address] [place], [place] [address]Ethel Rendon [place], [address] . tel:[phone] OFFICE/OUTPAT IENT VISIT, [facility], [address] [place], [place] [address]Humera Rendon [place], [id number] , [place] tel: [phone] [facility] [place] Back Pain (chief complaint) Chronic pain syndromeOther chest pain 0 Luisa Bennett. [address] Rosa Maria Ying [place], [id number] , [place]. tel: [phone] Referring Provider: Charles Lawton, [address] [place], [address] . tel:[phone] Family History Family Member Type Diagnosis Age At Onset No Information Payers Payer name Insurance type Covered constitution party ID Authoriza tion(s) [employer] CI [id number] Social History Type Description Quantity Date Captured Comments Sex Female Smoking Status No Information Chief Complaint And Reason For Visit No Information Reason For Referral Reason For Referral No Information Plan Of Treatment Date Type Action Status Goal Medication Reconciliation. D ue on due Goal FIT-DNA. Due on due Goal Tobacco Use. Due on 023 due Goal Height. Due on d ue Goal Hepatitis C screening. Due o n due Goal Lipid panel. Due on 023 due Goal FIT. Due on due Goal CT-Colonography. Due on due Goal Zoster vaccine (1st). Due on due Goal PHQ-9. Due on du e Goal Review Allergy List. Due on due Goal HPV. Due on due Goal Weight. Due on d ue Goal Update Social History. Due o n due Goal Unhealthy drug use screening . Due on due Goal Weight. Due on d ue Goal PHQ-9. Due on du e Goal Zoster vaccine (1st). Due on due Goal Lipid panel. Due on 023 due Goal Height. Due on d ue Goal Hepatitis C screening. Due o n due Goal FIT-DNA. Due on due Goal Update Social History. Due o n due Goal Tobacco Use. Due on 023 due Goal Medication Reconciliation. D ue on due Goal CT-Colonography. Due on due Goal FIT. Due on due Goal Review Allergy List. Due on due Goal Unhealthy drug use screening . Due on due Goal HPV. Due on due Goal Update Social History. Due o n due Goal CT-Colonography. Due on due Goal PHQ-9. Due on du e Goal Height. Due on d ue Goal Lipid panel. Due on 022 due Goal HPV. Due on due Goal Zoster vaccine (1st). Due on due Goal Hepatitis C screening. Due o n due Goal Weight. Due on d ue Goal FIT. Due on due Goal Medication Reconciliation. D ue on due Goal Unhealthy drug use screening . Due on due Goal Tobacco Use. Due on due Goal Review Allergy List. Due on due Goal FIT-DNA. Due on due Goal Medication Reconciliation. D ue on due Goal PHQ-9. Due on du e Goal Weight. Due on d ue Goal HPV. Due on due Goal Height. Due on d ue Goal FIT-DNA. Due on due Goal Unhealthy drug use screening . Due on due Goal FIT. Due on due Goal CT-Colonography. Due on due Goal Tobacco Use. Due on due Goal Hepatitis C screening. Due o n due Goal Lipid panel. Due on due Goal Zoster vaccine (). Due on due Goal Update Social History. Due o n due Goal Review Allergy List. Due on due Goal FIT-DNA. Due on due Goal Update Social History. Due o n due Goal Weight. Due on d ue Goal FIT. Due on due Goal HPV. Due on due Goal Review Allergy List. Due on due Goal CT-Colonography. Due on due Goal Lipid panel. Due on due Goal Unhealthy drug use screening . Due on due Goal Zoster vaccine (). Due on due Goal Tobacco Use. Due on due Goal PHQ-9. Due on du e Goal Medication Reconciliation. D ue on due Goal Hepatitis C screening. Due o n due Goal Height. Due on d ue Goal FIT. Due on due Goal Update Social History. Due o n due Goal Review Allergy List. Due on due Goal Hepatitis C screening. Due o n due Goal Medication Reconciliation. D ue on due Goal Unhealthy drug use screening . Due on due Goal PHQ-9. Due on du e Goal Zoster vaccine (). Due on due Goal HPV. Due on due Goal CT-Colonography. Due on due Goal Weight. Due on d ue Goal FIT-DNA. Due on due Goal Tobacco Use. Due on due Goal Lipid panel. Due on due Goal Height. Due on d ue Goal FIT. Due on due Goal Update Social History. Due o n due Goal Medication Reconciliation. D ue on due Goal Zoster vaccine (). Due on due Goal PHQ-9. Due on du e Goal Hepatitis C screening. Due o n due Goal Unhealthy drug use screening . Due on due Goal Review Allergy List. Due on due Goal HPV. Due on due Goal Height. Due on d ue Goal CT-Colonography. Due on due Goal FIT-DNA. Due on due Goal Lipid panel. Due on due Goal Tobacco Use. Due on due Goal Weight. Due on d ue Goal Height. Due on d ue Goal Medication Reconciliation. D ue on due Goal Tobacco Use. Due on due Goal Unhealthy drug use screening . Due on due Goal CT-Colonography. Due on due Goal FIT-DNA. Due on due Goal Hepatitis C screening. Due o n due Goal Review Allergy List. Due on due Goal Lipid panel. Due on due Goal Zoster vaccine (). Due on due Goal Update Social History. Due o n due Goal Weight. Due on d ue Goal HPV. Due on due Goal FIT. Due on due Goal PHQ-9. Due on du e Goal Update Social History. Due o n due Goal Medication Reconciliation. D ue on due Goal Height. Due on d ue Goal PHQ-9. Due on du e Goal Tobacco Use. Due on due Goal Weight. Due on d ue Goal Review Allergy List. Due on due Goal Medication Reconciliation. D ue on due Goal Tobacco Use. Due on due Goal Review Allergy List. Due on due Goal Update Social History. Due o n due Goal PHQ-9. Due on du e Goal Weight. Due on d ue Goal Height. Due on d ue Goal Height. Due on d ue Goal Weight. Due on d ue Goal Medication Reconciliation. D ue on due Goal Review Allergy List. Due on due Goal Update Social History. Due o n due Goal Tobacco Use. Due on due Goal PHQ-9. Due on du e Goal Tobacco Use. Due on due Goal Review Allergy List. Due on due Goal Height. Due on d ue Goal Medication Reconciliation. D ue on due Goal Update Social History. Due o n due Goal Weight. Due on d ue Goal PHQ-9. Due on du e History Of Present Illness Encounter Date Complaint [...] today. Back Pain Severity level i s 8. Duration: chronic. It occurs intermittently. The client describes the pain as sharp and tingling. Symptoms are aggravated by bending, lifting, twisting, walking, movement and housework. Symptoms are relieved by lying down. 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 Back Pain Severity level i s 10. Duration: chronic. The problem is worsening. It occurs intermittently. Location of pain is middle back and anterior chest. The client describes the pain as an ache, sharp and tingling. Symptoms are aggravated by bending, lifting, sitting, standing, twisting, walking, housework and prolonged positioning. Symptoms are relieved by lying down and rest. Comments: Domonique i s here for follow [...] to today's discussion. No other concerns today. dorsalgia Patient describe s sever limiting pain [...] to exercise and work on core strengthening thoracic spine Comments: Domonique i s here for follow [...] 3 times a week, with a personal investment adviser through [employer] in addition to walking on her property. [...] effects. Back Pain Severity level i s 10. [...] pain. No other concerns today. Back Pain Severity level i s 9. Duration: chronic. The problem is fluctuating. It occurs intermittently. Location of pain is middle back and lower back. Symptoms are aggravated by lifting, standing, twisting, walking, housework and prolonged positioning. Symptoms are relieved by lying down, massage, stretching, rest, TENS and changing positions. Back Pain (comments) Domonique is her e [...] TENs unit and changing positions. Back Pain Severity level i s 9. Duration: chronic. The problem is fluctuating. It occurs intermittently. The patient describes the pain as an ache, sharp and tingling. Symptoms are aggravated by bending, lifting, twisting, housework and prolonged positioning. Symptoms are relieved by lying down, sitting and TENS. Back Pain (comments) Domonique prespablo for a follow up regarding chest wall [...] today's discussion. No further concerns. Back Pain (comments) Domonique prespablo for a virtual follow up regarding chest wall and mid back pain.Primarily presents today for thoracic RFA education. All questions answered. Confirmatory on 04/28 with significant relief, but has since worn off. Mid back pain is localized to her bra line and persistent. Exacerbations typically when slightly bending forward especially when doing activities like washing dishes. Accompanied by her today. No further concerns. Back Pain Onset: gradual w ithout injury. Severity level is moderate. Duration: chronic. The problem is fluctuating. It occurs intermittently. Location of pain is middle back.The patient describes the pain as an ache and sharp. Symptoms are aggravated by bending, daily activities, lifting and standing. Symptoms are relieved by heat, ice and rest. widespread pain Patient is a 59 year [...] an improved quality of life. Back Pain (comments) Domonique is her e [...] today. Back Pain Severity level i s 8. Duration: chronic. The problem is stable. It occurs intermittently. Location of pain is middle back, chest and breasts.The patient describes the pain as an ache, sharp and tingling. Symptoms are aggravated by bending, lifting, sitting, twisting, housework and movement. Symptoms are relieved by lying down and TENS. Back Pain (comments) Domonique ding ts for initial consult for her c/c of ongoing chronic back and chest pain. Self Referred to [facility], She has had the pain for the [...] PT in the past and presently in [place] (2019-present) which is providing limited benefit. She would like to establish care with [facility] in order to explore other adjunctive treatment and pursue other therapies so that she may continue functioning normally without pain.Current Treatments/Medications: TENS unit(limited benefit)Her , Lake was present int he OV today and contributed tot he discussion of care. Back Pain Severity level i s 9. Duration: chronic. The problem is worsening. It occurs persistently. Location of pain is middle back, left flank, right flank and Chest.There is no radiation of pain. The patient describes the pain as sharp and stabbing. Symptoms are aggravated by changing positions, extension, flexion and pulling. Symptoms are relieved by physical therapy and TENS unit. Functional Status Date Functional Assessmen t No Information Instructions Date Instruction Additional Infor mation No Information Assessments Type Assessment Date No Information Patient Care Teams Name Effective Dates (start - stop) Status Members No Information
--- NOTE | 2023-06-19 15:00 | XR_ITS ---
Patient: HIRAM FAROOQ Facility:?[facility] Patient ID:?[id number] Site Patient ID:?[id number]. Site :?[id number] Study:?DEXA-Bone Density -06/19/2023 3:42:27 PM Ordering Physician:Jessica Johnson Final Report: DXA BONE MINERAL DENSITY STUDY Reason for exam: Osteoporosis. Current height (in): 62. Weight (lb): 204. Menopause age: 48. Ethnicity: White. 1. Have you had a previous hip or vertebral fracture? No. 2. Have you had any fractures during your adult life which did not result from significant trauma (e.g., auto accident)? No. 3. Did either of your parents have a hip fracture? No. 4. Do you smoke? No. 5. Have you ever taken Glucocorticoids? Yes. 6. Do you have rheumatoid arthritis? No. 7. Do you have secondary osteoporosis? No. 8. Do you drink 3 or more alcoholic drinks per day? No. 9. Are you being treated for osteoporosis? No. 10. Have you ever taken any of the following medications: Actonel, Evista, Fosamax, Miacalcin, Reclast, Boniva, Forteo, HRT (i.e. estrogen/hormone therapy), Protelos, Prolia, Vitamin D, Calcium, other ? please specify. ANSWER: Yes, vitamin D, calcium. 11. Do you have any of the following medical conditions: Anorexia or bulimia, asthma or emphysema, end stage renal disease, hyperparathyroidism, any seizure disorders, cancer, inflammatory bowel diseases, hysterectomy, other ? please specify. ANSWER: Yes, cancer. 12. What was your maximum height (inches)? 62. 13. Do you perform weight bearing exercise regularly? Yes. 14. Do you regularly consume dairy products? Yes. 15. Do you drink caffeinated beverages? Yes. 16. At what age did your period start? 15. 17. Are you premenopausal? No. 18. How many full term pregnancies have you had? 3. 19. Have you ever missed your period for more than 6 months in a row (not including or menopause)? No. TECHNIQUE: Bone mineral density study was performed using the Supers[employer]. FINDINGS: The results of the study expressed as bone mineral density (BMD) are as follows: Lumbar spine L1 to L4: BMD: 0.790 g/cm2. T-score: -2.3. Z-score: -0.7 Neck Left: BMD: 0.664 g/cm2. T-score: -1.7. Z-score: -0.3. Right: BMD: 0.731 g/cm2. T-score: -1.1. Z-score: 0.4. Total Left: BMD: 0.907 g/cm2. T-score: -0.3. Z-score: 0.8. Right: BMD: 0.880 g/cm2. T-score: -0.5. Z-score: 0.6. IMPRESSION: Osteopenia. *Comparison exams done prior to 11/2019 were performed on different unit, [employer]. COMPARISON: Compared with scan of 10/27/2020, the bone mineral density has decreased by -1.1 percent at the spine and increased by 3.0 percent at the hip. FRAX 10-year Fracture Risk Major Osteoporotic Fracture: 13 percent Hip Fracture: 1.5 percent Reported Risk Factors: [place] () Neck BMD=0.664, BMI=37.3, glucocorticoids Syed Uribe M.D. Diagnostic Radiologist [email or web address] D& Transcribed: 8:36 p.m. CHYNA/Dictated by: Syed Uribe MD @ 06/20/2023 8:57:00 AM CHYNA/Dictated by: Syed Uribe MD @ 06/20/2023 8:57:00 AM Signed by:?Syed Uribe MD @06/21/2023 10:56:16 AM (Electronic Signature)
== END 2023-06-19 14:29 | disposition home or self-care (01) ==
LOC: RAD 14:30
PROVIDERS: PCP Internal Medicine; Visit Provider Family Medicine Sports Medicine
DX: M81.0 Age-related osteoporosis without current pathological fracture (principal); M85.89 Other specified disorders of bone density and structure, multiple sites
CPT/HCPCS: 77080

== ENCOUNTER 2024-05-27 09:25 | Outpatient (CLI) | payer OTHER, SELFPAY | END 2024-05-27 09:26 | disposition home or self-care (01) | LOC: NFLDREF 06-02 15:15 | PROVIDERS: PCP Internal Medicine; Referring Provider Internal Medicine; Visit Provider Internal Medicine | DX: M85.80 Other specified disorders of bone density and structure, unspecified site (principal); E03.9 Hypothyroidism, unspecified; E78.5 Hyperlipidemia, unspecified | CPT/HCPCS: 80061; 82306; 84443 ==